=== PATIENT | female | born 1975 ===

== ENCOUNTER 2018-06-04 10:17 | Day surgery (SDC) | payer OTHER ==
[2018-06-04 10:34] VITALS: BMI 28.2
[2018-06-04 10:58] LABS: BASO # 0.1 K/uL (0.0-0.2); BASO % 1.4 % (0.0-2.0); EOS # 0.1 K/uL (0.0-0.7); EOS % 1.7 % (0.0-4.0); HEMOGLOBIN 13.2 g/dL (12.0-16.0); LYMPH # 1.9 K/uL (1.0-4.3); LYMPH % 25.9 % (20.0-40.0); MEAN CORPUSCULAR HEMOGLOBIN 31.8 pg (27.0-31.0); MEAN CORPUSCULAR HGB CONC 34.6 g/dL (33.0-37.0); MEAN PLATELET VOLUME 7.4 fl (7.2-11.7); MONO # 0.3 K/uL (0.0-0.8); MONO % 3.9 % (0.0-10.0); NEUT % 67.1 % (50.0-75.0); RBC 4.15 Mil/uL (3.80-5.20); RED CELL DISTRIBUTION WIDTH 12.3 % (11.5-14.5); WHITE BLOOD COUNT 7.4 K/uL (4.8-10.8)
[2018-06-04 11:10] VITALS: RESP 18
[2018-06-04] MEDS ORDERED: Lactated Ringer's 1,000 ML IV ONE (11:24)
[2018-06-04] MEDS ORDERED: Midazolam 2 MG/2 ML VIAL ONE (12:03)
[2018-06-04] MEDS ORDERED: Lidocaine 1% Inj (20ml) ONE (12:14)
[2018-06-04] MEDS ORDERED: Absorbable Gelatin Sponge Size 12-7 ONE (12:15)
--- NOTE | 2018-06-04 12:23 | CP.SDSHP ---
Same Day Surgery H & P - History Proposed Procedure: US guided liver biopsy Pre-Op Diagnosis: Fatty liver - Allergies Allergies: Allergies No Known Allergies Allergy (Verified 06/04/18 10:34) - Physical Exam Vital Signs: Vital Signs 06/04/18 11:09 Temperature 97.7 F Pulse Rate 79 Respiratory 18 Rate Blood Pressure 97/68 L O2 Sat by Pulse 98 Oximetry Mental Status: Alert & Oriented x3 Neuro: WNL Heart: WNL - Impression Impression: Pt with fatty liver referred for US guided liver biopsy. Plan US guided liver biopsy. Informed consent obtained. Pt. Evaluated Today:Candidate for Anesthesia & Procedure: Yes (ASA 2 Malampati 2) - Date & Time Date: 06/04/18 Time: 12:00 Short Stay Discharge - Short Stay Discharge Admitting Diagnosis/Reason for Visit: FATTY LIVER Disposition: HOME/ ROUTINE
--- NOTE | 2018-06-04 12:24 | PCM.SURG1 ---
Surgeon's Initial Post Op Note - Surgeon's Notes Surgeon: Reagan Bauer MD [employer] Engineer: NONE Type of Anesthesia: IV Sedation Pre-Operative Diagnosis: Fatty liver Operative Findings: US showed slightly echogic liver. Post-Operative Diagnosis: Fatty liver Operation Performed: US guided liver biopsy. Three 18-g core specimen obtained. Biopsy tract embolized with gelfoam. Specimen/Specimens Removed: 18-g core x 3 Estimated Blood Loss: EBL {In ML}: 1 Blood Products Given: N/A Drains Used: No Drains Post-Op Condition: Good Date of Surgery/Procedure: 06/04/18 Time of Surgery/Procedure: 12:15
[2018-06-04 14:36] VITALS: BP 143/60; PULSE 73; TEMP 98.5; O2SAT 98
--- NOTE | 2018-06-06 12:00 | US ---
PROCEDURE: Date of procedure: 06/04/2018 Procedure: 1. Ultrasound-guided core liver biopsy, CPT 99803 2. Ultrasound guidance for biopsy, [id number] Medications: The patient is sedated by the anesthesiologist. HISTORY: Fatty liver TECHNIQUE: Following informed consent and procedure time-out, the patient was placed supine on bed and limited ultrasound showed a normal appearing left hepatic lobe. After patient abdomen was prepped and draped in the usual sterile fashion and the skin was anesthetized with 2% lidocaine, an 18 gauge core needle was advanced percutaneously under direct ultrasound guidance into the left hepatic lobe. Upon confirmation of needle position, three 18 gauge core specimens were obtained and sent for routine pathology. The biopsy to tract was then embolized with Gelfoam. A post biopsy ultrasound showed no hematoma. A dressing was applied. IMPRESSION: Ultrasound-guided core biopsy left hepatic lobe. There were no immediate complications.
== END 2018-06-04 15:13 | disposition home or self-care (01) ==
LOC: H.OPSURG 10:17
PROVIDERS: ATTEND Family Medicine
DX: K76.0 Fatty (change of) liver, not elsewhere classified (principal); E11.9 Type 2 diabetes mellitus without complications; E03.9 Hypothyroidism, unspecified
CPT/HCPCS: 36415; 47000; 85025; 88307; A4310; J2250; J3010; J7120